=== PATIENT | female | born 1930 | race Caucasian/White ===

== ENCOUNTER → 2016-06-05 | Outpatient (CLI) | payer OTHER | LOC: BMCIMAGING 14:26 | PROVIDERS: ATTEND Internal Medicine | DX: M25.512 Pain in left shoulder (principal) ==

== ENCOUNTER → 2016-08-13 | Outpatient (CLI) | payer OTHER | LOC: FIMAGING 09:58 | PROVIDERS: ATTEND Internal Medicine | DX: M51.36 Other intervertebral disc degeneration, lumbar region (principal); M51.37 Other intervertebral disc degeneration, lumbosacral region; M43.16 Spondylolisthesis, lumbar region; M48.06 Spinal stenosis, lumbar region; M99.73 Connective tissue and disc stenosis of intervertebral foramina of lumbar region; M12.88 Other specific arthropathies, not elsewhere classified, other specified site ==

== ENCOUNTER → 2016-10-15 | Outpatient (CLI) | payer OTHER | LOC: FIMAGING 10:13 | PROVIDERS: ATTEND Internal Medicine | DX: Z12.31 Encounter for screening mammogram for malignant neoplasm of breast (principal) | CPT/HCPCS: G0202 ==

== ENCOUNTER → 2017-04-23 | Outpatient (CLI) | payer OTHER | LOC: BHFA 11:30 | PROVIDERS: ATTEND Internal Medicine Cardiovascular Disease | DX: I48.91 Unspecified atrial fibrillation (principal) ==

== ENCOUNTER 2018-04-22 18:17 | Inpatient (IN) | payer OTHER ==
--- NOTE | 2018-04-22 18:30 | EDPHY ---
H & P Time Seen by Provider: 04/22/18 18:28 HPI/ROS: CHIEF COMPLAINT: Weakness for a week HISTORY OF PRESENT ILLNESS: Patient has a history of atrial fibrillation on Eliquis and digoxin. She presents with a week of increasing weakness and inability today to walk. Decreased oral intake associated for the last 2 days. She had some diarrhea as well. Denies abdominal pain or vomiting, denies chest pain cough or shortness of breath, denies fever chills or urinary symptoms. She has some chronic lower extremity wounds and swelling. REVIEW OF SYSTEMS: Eye: no change in vision ENT: no sore throat Cardiac: no chest pain or syncope Pulmonary: HPI Abdomen: no vomiting, diarrhea, abdominal pain Musculoskeletal: Chronic lower extremity swelling Skin: no rash Neuro: no headache Constitutional: no fever : no urinary symptoms A comprehensive 10 point review of systems is otherwise negative aside from elements mentioned in the history of present illness. PAST MEDICAL HISTORY: Includes atrial fibrillation on Eliquis digoxin Social history: Here with and daughter General Appearance: Alert and conversant, cooperative. Eyes: No scleral icterus. ENT, Mouth: Dry mucous membranes. Respiratory: Normal respiratory effort, decreased breath sounds at the right base. Cardiovascular: Distant heart sounds. Gastrointestinal: Abdomen is soft and non tender. Neurological: Alert, face symmetric, normal motor and sensory in extremities. Skin: Multiple superficial skin tears in wounds with dressings intact. Musculoskeletal: Bilateral peripheral edema in the right leg is slightly redder than the left. Does not have crepitus or fluctuance. Psychiatric: Not agitated. Emergency Department course/MDM: Daughter tells me patient was sent here for admission by her primary care provider. Call is placed to Dr. Linnette porter. 1839: Linnette, will admit. Plan for treating initially with antibiotics for clinical appearance of possible right leg cellulitis. I think that DVT would be unlikely on Eliquis, clinically unlikely to be fasciitis or compartment syndrome or fracture. Results discussed at 7:15 p.m. With patient daughter and . Patient has received Ancef and cephalosporins before without problem, will give Ancef IV. IV fluids for acute kidney injury with creatinine 3.1. 2046: Chest x-ray reviewed, has large right pleural effusion. Discussed with Reji at 2021 will followup. Smoking Status: Former smoker Constitutional: Initial Vital Signs Temperature (C) 36.3 C 04/22/18 18:19 Heart Rate 62 04/22/18 18:19 Respiratory Rate 16 04/22/18 18:19 Blood Pressure 139/86 H 04/22/18 18:19 O2 Sat (%) 94 04/22/18 18:19 O2 Delivery Mode Nasal Cannula O2 (L/minute) 2 Allergies/Adverse Reactions: clindamycin [Clindamycin] Allergy (Severe, Verified 04/22/18 18:25) BRIGHT RED RASH HEAD TO TOE, ITCHING shellfish derived [Shellfish Derived] Allergy (Severe, Verified 04/22/18 18:25) NAUSEA / VOMITING Tetanus Toxoid,Fl *RETIRED-12/03/11 [Tetanus Toxoid,Fluid] Allergy (Severe, Verified 04/22/18 18:25) ARM EDEMA AT SITE Penicillins Allergy (Intermediate, Verified 04/22/18 18:25) Rash Sulfa (Sulfonamide Antibiotics) Allergy (Verified 04/22/18 18:25) Home Medications: Medication Instructions Recorded Apixaban [Eliquis] 2.5 mg PO BID 04/22/18 Cmpd Testosterone Crm 1 cordelia TP HS 04/22/18 Digoxin [Lanoxin 125 mcg (RX)] 125 mcg PO DAILY10 04/22/18 Furosemide [Lasix 20 MG (*)] 40 mg PO DAILY 04/22/18 Nebivolol HCl [Bystolic] 2.5 mg PO DAILY 04/22/18 Spironolactone [Aldactone 50 MG 50 mg PO DAILY 04/22/18 (RX)] Umeclidinium Brm/Vilanterol Tr 1 inh IH DAILY 04/22/18 [Anoro Ellipta 62.5-25 Mcg INH] Vitamin D 5000units 5,000 units PO DAILY 04/22/18 predniSONE 5 mg PO Q2D 04/22/18 Medical Decision Making - Diagnostics EKG Interpretation: 12-lead EKG interpreted by me; official reading is in computer system. My interpretation is atrial fibrillation rate 50 with late anterior RS transition. Imaging Results: Imaging Impressions Chest X-Ray 04/22/18 18:28 Impression: 1. Bilateral pleural effusions moderate to large on the right and mild-to- moderate on the left with adjacent compressive atelectatic changes. 2. Prominence of pulmonary vasculature centrally and dependent edema. Consider fluid overload/CHF. Imaging: I viewed and interpreted images myself Differential Diagnosis: Differential diagnosis considered for weakness including but not limited to infection electrolyte abnormality, depression, anxiety, CVA, spinal cord abnormality - Data Points Laboratory Results: Laboratory Results 04/22/18 18:32 04/22/18 18:32 04/22/18 04/22/18 04/22/18 18:32 18:32 18:30 WBC 11.05 10^3/uL H 10^3/uL (3.80-9.50) RBC 4.53 10^6/uL 10^6/uL (4.18-5.33) Hgb 13.2 g/dL g/dL (12.6-16.3) Hct 41.2 % % (38.0-47.0) MCV 90.9 fL fL (81.5-99.8) MCH 29.1 pg pg (27.9-34.1) MCHC 32.0 g/dL L g/dL (32.4-36.7) RDW 14.7 % % (11.5-15.2) Plt Count 625 10^3/uL H 10^3/uL (150-400) MPV 9.6 fL fL (8.7-11.7) Neut % (Auto) 68.0 % % (39.3-74.2) Lymph % (Auto) 20.2 % % (15.0-45.0) [place] % (Auto) 9.8 % % (4.5-13.0) Eos % (Auto) 1.2 % % (0.6-7.6) Baso % (Auto) 0.4 % % (0.3-1.7) Nucleat RBC Rel Count 0.0 % % (0.0-0.2) Absolute Neuts (auto) 7.53 10^3/uL H 10^3/uL (1.70-6.50) Absolute Lymphs (auto) 2.23 10^3/uL 10^3/uL (1.00-3.00) Absolute Monos (auto) 1.08 10^3/uL H 10^3/uL (0.30-0.80) Absolute Eos (auto) 0.13 10^3/uL 10^3/uL (0.03-0.40) Absolute Basos (auto) 0.04 10^3/uL 10^3/uL (0.02-0.10) Absolute Nucleated RBC 0.00 10^3/uL 10^3/uL (0-0.01) Immature Gran % 0.4 % % (0.0-1.1) Immature Gran # 0.04 10^3/uL 10^3/uL (0.00-0.10) Sodium 133 mEq/L L mEq/L (135-145) Potassium 4.4 mEq/L mEq/L (3.5-5.2) Chloride 107 mEq/L mEq/L (97-110) Carbon Dioxide 22 mEq/l mEq/l (22-31) Anion Gap 4 mEq/L L mEq/L (6-14) BUN 50 mg/dL H mg/dL (7-23) Creatinine 3.1 mg/dL H mg/dL (0.6-1.0) Estimated GFR 14 Glucose 96 mg/dL mg/dL (70-100) Calcium 7.8 mg/dL L mg/dL (8.5-10.4) Lactate Dehydrogenase 706 IU/L H IU/L (313-618) Digoxin 1.2 ng/mL ng/mL (0.8-2.0) Medications Given: Discontinued Medications Sodium Chloride (Ns) 1,000 mls @ 0 mls/hr IV EDNOW ONE; Wide Open PRN Reason: Protocol Stop: 04/22/18 19:13 Last Admin: 04/22/18 19:26 Dose: 1,000 mls Sodium Chloride (Ns) 1,000 mls @ 0 mls/hr IV EDNOW ONE; Wide Open PRN Reason: Protocol Stop: 04/22/18 19:13 Last Admin: 04/22/18 19:28 Dose: 1,000 mls Cefazolin Sodium/Dextrose (Ancef 1 Gm (Premix)) 50 mls @ 200 mls/hr IV EDNOW ONE PRN Reason: Protocol Stop: 04/22/18 19:29 Last Admin: 04/22/18 19:55 Dose: 50 mls Departure - Departure Disposition: [facility] Inpatient Acute Clinical Impression: Weakness, Acute kidney injury, Cellulitis of right leg Condition: Good
[2018-04-22 18:42] LABS: PLATELET COUNT 625 10^3/uL (150-400)
[2018-04-22] MEDS ORDERED: NS 1,000 ML IV ONE ×2 (19:12)
--- NOTE | 2018-04-22 19:32 | CPEKG ---
Test Reason : OPEN Blood Pressure : / mmHG Vent. Rate : 049 BPM Atrial Rate : 058 BPM P-R Int : 046 ms QRS Dur : 088 ms QT Int : 427 ms P-R-T Axes : 000 095 -80 degrees QTc Int : 386 ms Atrial fibrillation Probable anterior infarct, age indeterminate Confirmed by Dav Melton ([id number]) on 04/22/2018 7:32:19 PM Referred By: Celestino Anglin Confirmed By:Dav Melton
[2018-04-22] MEDS: APIXABAN 2.5 MG TAB PO SCH (22:40)
--- NOTE | 2018-04-22 22:47 | GHP ---
[f rep st] HISTORY AND PHYSICAL DATE OF ADMISSION: 04/22/2018 REASON FOR ADMISSION: Weakness, edema, leg weeping. HISTORY: This patient is an 88-year-old female who has a history of pleural effusion, heart failure, interstitial lung disease, COPD, who presents with increased swelling, leg weeping, and diffuse weakness. She was doing very well about 2 months ago; however, she has had increased edema in her legs and is feeling increasingly weak. She called the office today and said that she was too weak to come into the office, presented to the emergency room for evaluation. In the emergency room, she was found to have a red right leg with swelling and some weeping. Was also found to have a large right pleural effusion on chest x-ray and pyuria on urinalysis. She also has a mildly elevated white blood cell count. She was also found to have a significant increase in her creatinine compared to her most recent blood work and is being admitted for further evaluation. PAST MEDICAL HISTORY: Significant for hypertension, factor V Leiden mutation heterozygous, hypertension, edema, atherosclerotic heart disease with an elevated coronary calcium score, status post hip replacement. ALLERGIES: She is allergic to penicillin, clindamycin, scallops, and sulfamethoxazole. CURRENT MEDICATIONS: Amitriptyline 10 mg h.s., Bystolic 2.5 mg daily, digoxin 0.125 mg daily, ipratropium 0.6% solution spray in each nostril as needed, Anoro Ellipta 1 puff twice daily, aged garlic extract 4 daily, aspirin 81 mg daily, vitamin D 5000 international units daily, fish oil 1 capsule daily, prednisone 5 mg b.i.d., testosterone topical cream 1 clip each morning, Eliquis 2.5 mg twice daily, spironolactone 50 mg daily. REVIEW OF SYSTEMS: She is quite weak, has had no appetite, is eating poorly. PHYSICAL EXAM: VITAL SIGNS: Blood pressure 139/86. Pulse is 62 and irregularly irregular. Oxygen saturations 94% on 2 L. GENERAL: She is alert, oriented, appropriate. HEENT: Pupils are equal and reactive to light. Throat was normal. LUNGS: Revealed diminished breath sounds, especially on the right side. HEART: Has an irregularly irregular rhythm without significant murmur. ABDOMEN: Nontender. She has brawny edema bilaterally, with the right lower extremity being red compared to the left. She has an ulcer on both lower extremities. Pulses are not palpable in the feet. Blood work was significant, in that her BUN is 50, creatinine is 3.1. White count is 11,500, hemoglobin 13.2 with a left shift. Urinalysis reveals 3+ protein, 1+ blood, 25-50 white blood cells per high-powered field, 1+ glucose. Chest x-ray reveals a large right pleural effusion. IMPRESSION: Pleural effusion, possible urinary tract infection, possible cellulitis, profound weakness, increased BUN and creatinine. PLAN: We will obtain an echo of the heart. We will place on antibiotics. We will obtain a urine culture. We will do a therapeutic thoracentesis. We will get a renal ultrasound to further evaluate possible etiologies of increased creatinine. /[id number]/MODL MTDD
[2018-04-22] MEDS: D5W 1/2 NS 1,000 ML IV SCH (22:59)
[2018-04-23] MEDS: TESTOSTERONE TP SCH ×2 (01:02→21:40)
[2018-04-23 05:38] LABS: PLATELET COUNT 491 10^3/uL (150-400)
[2018-04-23] MEDS: D5W 1/2 NS 1,000 ML IV SCH (07:25)
--- NOTE | 2018-04-23 08:18 | SOAPPROG ---
SOAP Progress Note Assessment/Plan: Assessment: 88 yo female admitted through the ED for bilateral pleural effusions (R>L), CHF, acute renal failure, RLE cellulitis, and pyuria. She has a h/o atrial fibrillation on chronic anticoagulation, coronary artery disease, hypertension, factor V leiden mutation heterozygous, and is s/p hip replacement. Plan: Cellulitis, RLE - cefazolin, WBC improved Congestive Heart Failure, acute exacerbation - echocardiogram today Acute renal failure - renal ultrasound pending for further evaluation of cause of worsening renal function, holding diuretics for now, soft hydration Pleural Effusion - therapeutic thoracentesis today, titrate O2 to maintain sats >90% Pyura - urine culture pending 04/23/18 08:30 Subjective: Antonietta is resting in bed this morning. Says she slept pretty well, doesn't feel short of breath. Isn't coughing much up. Denies pain. Objective: Vital Signs Temp Pulse Resp BP Pulse Ox 36.6 C 78 18 137/78 H 94 04/23/18 03:10 04/23/18 03:10 04/23/18 03:10 04/23/18 03:10 04/23/18 03:10 Laboratory Results 04/23/18 05:12 04/23/18 05:12 04/22/18 04/23/18 04/24/18 05:59 05:59 05:59 Intake Total 2965 Balance 2965 Gen- alert, oriented, vitals stable Head- normocephalic, atraumatic CV- irregularly irregular rate and rhythm, rate controlled Resp- decreased to the right lower lobe, no wheezing, rhonchi, rales Abd- SNT, nondistended Extremities- RLE with decreased edema, still erythematous, non-weeping. Healing wound to R anterior dobson without drainage, not open at this time ICD10 Worksheet Patient Problems: Problems Problem Status Onset Acute kidney injury Acute Cellulitis of right leg Acute Weakness Acute
[2018-04-23] MEDS: CHOLECALCIFEROL VIT D3 2,000 UNITS TAB/CAP PO SCH (08:55)
[2018-04-23] MEDS: NEBIVOLOL HCL 5 MG TAB PO SCH ×2 (08:56→10:05)
[2018-04-23] MEDS: ceFAZolin 0.5 GM in D5W 50 ML IV SCH ×2 (08:56→21:37)
[2018-04-23] MEDS: APIXABAN 2.5 MG TAB PO SCH ×2 (09:00→21:37)
[2018-04-23 09:37] LABS: INR 1.02 (0.83-1.16); PROTIME(PATIENT) 13.6 SEC (12.0-15.0)
[2018-04-23] MEDS: Umeclidinium Brm/Vilanterol Tr [Anoro Ellipta 62.5-25 Mcg Inh] IH SCH (10:06)
--- NOTE | 2018-04-23 10:59 | PDMN ---
Medical Necessity Medical necessity: Pt meets IP criteria as of 04/22/2018 per and MCG M-540 ( pleural effusion) and M-70 (cellulitis); est los > 2 mn for ongoing tx and management of bilateral large pleural effusions requiring thoracentesis as well as cellulitis in the setting of acute CHF exacerbation, acute renal failure and tx of probable UTI with pyuria; requiring IV ABX, further workup, and serial labs.
--- NOTE | 2018-04-23 12:42 | ECHO ---
[email or web address] [address] [address] Main: [phone] Fax: Transthoracic Echocardiogram Name: ERICK ROY MR#: [id number] Study Date: 04/23/2018 Study Time: 09:28 AM Date of : 1930 Age: 88 year(s) Height: 175.3 cm (69 in.) Weight: 58.97 kg (130 lb.) BSA: 1.72 m2 Gender: Female Examination: Echo Indication: SOB/pleural effusion, COPD Image Quality: Good Contrast: Requested by: Celestino Anglin BP: 114 mmHg/66 mmHg Heart Rate: Rhythm: Indication: SOB/pleural effusion, COPD Procedure Staff Sprinkler Fitter Helper: Maria Eugenia Jimenez [facility] Reading Physician: Chapis Sosa MD Requesting Provider: Conclusions: Normal size left ventricle. No LV hypertrophy. Normal global systolic LV function. The ejection fraction is estimated to be 70-75 %. No regional wall motion abnormality. Normal size right ventricle. Normal RV function. The left atrium is mildly dilated. Mild mitral valve regurgitation is present. No aortic valve stenosis is present. Moderate tricuspid regurgitation is present. The pulmonary artery pressure is severely increased. RVSP is 78mmHG.. Left side pleural effusion. There is no previous echocardiogram for comparison. Measurements: Chambers Valvular Assessment AV/MV Valvular Assessment TV/PV Normal Normal Normal Name Value Range Name Value Range Name Value Range Ao Alexandra (MM): 3.0 cm (2.2 cm-3.7 AV Vmax: 1.45 m/s (1 m/s-1.7 TR Vmax: 4.11 mm/s ( - ) cm) m/s) TR PGmax: 68 mmHg ( - ) IVSd (2D): 0.9 cm (0.6 cm-1.1 AV meanP mmHg ( - ) syst. PAP: 78 mmHg ( - ) cm) MV E Vmax: 1.05 m/s ( - ) LVDd (2D): 3.8 cm (3.9 cm-5.3 MV A Vmax: 0.38 m/s ( - ) cm) MV E/A: 2.76 ( - ) LVDs (2D): 2.4 cm (2.1 cm-4 cm) LVPWd (2D): 1.0 cm ( - ) LVOTd 1.9 cm 1.9 cm mm Patient: ERICK ROY Study Date: 04/23/2018 Page 1 of 2 09:28 AM LVEF (BP): 71 % (>=55 %) EF Range: 70-75 % Continued Measurements: Chambers Valvular Assessment AV/MV Valvular Assessment TV/PV Name Value Name Value Name Value LADs: 3.8 cm MV E' Septal: 0.08 m/s CVP (est.): 10 mmHg LADs Lon.2 cm MV E/E' Septal: 13.80 LA Area: 21.2 cm2 MV E/E' Lateral: 12.50 LA Volume: 59 ml LA Volume Index: 34.3 ml/m2 Additional Vessels Name Value Ao Ascendin.9 cm Findings: Left Ventricle: Normal size left ventricle. No LV hypertrophy. Normal global systolic LV function. The ejection fraction is estimated to be 70-75 %. No regional wall motion abnormality. Unable to assess diastolic dysfunction.. Right Ventricle: Normal size right ventricle. Normal RV function. There is a moderator band noted in the right ventricle. Left Atrium: The left atrium is mildly dilated. Right Atrium: The right atrium is normal in size. Mitral Valve: Moderate mitral annular calcification. Mild mitral valve regurgitation is present. Aortic Valve: Moderate aortic cusp calcification is present. Trivial aortic valve regurgitation. No aortic valve stenosis is present. Tricuspid Valve: The tricuspid valve is normal in appearance and function. Moderate tricuspid regurgitation is present. The pulmonary artery pressure is severely increased. RVSP is 78mmHG.. Pulmonic Valve: The pulmonic valve is normal in appearance and function. Aorta: The aorta is normal. Pericardium: No pericardial effusion. Left side pleural effusion. (No Signature Object) Patient: ERICK ROY Study Date: 04/23/2018 Page 2 of 2 09:28 AM [id number]
--- NOTE | 2018-04-23 16:47 | ASMTCASEMG ---
Living Arrangements What is your living Answers: With Spouse arrangement? Who do you live with? Type Of Residence What kind of residence do Answers: House you live in? Discharge Plan Comments Coordination Status Comments Notes: Patient is an 88yo female who has a hx of pleural effusion, heart failure, COPD, presenting with increased swelling, leg weeping and diffuse weakness. Patient is being admitted for pleural effusion, possible UTI, cellulitis, profound weakness, increased BUN and creatinine. No therapies ordered at this time. Patient lives with her in [place]. Patient's PCP is Dr. Anglin. Patient states she has advanced directives but there are none in her medical chart. D/C plan TBD. CM will follow. Date Signed: 04/23/2018 04:47 PM Electronically Signed By:Apple Lazaro LCSW
[2018-04-24 05:44] LABS: PLATELET COUNT 504 10^3/uL (150-400)
--- NOTE | 2018-04-24 09:01 | SOAPPROG ---
SOAP Progress Note Assessment/Plan: Assessment: Plan: 04/24/18 09:00 pleural effusion--thoracentesis today a fib--rate controlled pulm htn--sildenafil started CHAITANYA--gradual improvement cellulitis--improving Subjective: Doing ok. Breathing stable. Questions about thoracentesis, kidneys and when she can go home. Legs have reduced in swelling nicely. No pain Objective: Vital Signs Temp Pulse Resp BP Pulse Ox 36.4 C 72 18 123/67 H 93 04/24/18 07:49 04/24/18 07:49 04/24/18 07:49 04/24/18 07:49 04/24/18 07:49 Laboratory Results 04/24/18 05:27 04/24/18 05:27 04/23/18 04/24/18 04/25/18 05:59 05:59 05:59 Intake Total 2965 250 Balance 2965 250 PT 13.6 SEC (12.0-15.0) 04/23/18 09:21 INR 1.02 (0.83-1.16) 04/23/18 09:21 Gen: NAD HEENT: wearing nasal canula, cheeks puffy Lungs: diminished BS Heart: irreg irreg LE's trace edema cr 2.8 wBC and neutrophils improved ICD10 Worksheet Patient Problems: Problems Problem Status Onset Acute kidney injury Acute Cellulitis of right leg Acute Weakness Acute
--- NOTE | 2018-04-24 09:06 | CPEKG ---
Test Reason : OPEN Blood Pressure : / mmHG Vent. Rate : 060 BPM Atrial Rate : 118 BPM P-R Int : 065 ms QRS Dur : 082 ms QT Int : 441 ms P-R-T Axes : 000 075 257 degrees QTc Int : 441 ms Atrial fibrillation Probable anterolateral infarct, age indeterm Partial missing lead(s): V1 Confirmed by Jack Martin ([id number]) on 04/24/2018 9:05:30 AM Referred By: Celestino Anglin Confirmed By:Jack Martin
[2018-04-24] MEDS ORDERED: LIDOCAINE 1% 300 MG/30 ML SDV ONE (09:09)
[2018-04-24] MEDS: ceFAZolin 0.5 GM in D5W 50 ML IV SCH ×2 (09:34→21:08)
[2018-04-24] MEDS: NEBIVOLOL HCL 5 MG TAB PO SCH (09:44)
[2018-04-24] MEDS: predniSONE 5 MG TAB PO SCH (09:45)
[2018-04-24] MEDS: CHOLECALCIFEROL VIT D3 2,000 UNITS TAB/CAP PO SCH (09:46)
[2018-04-24] MEDS: APIXABAN 2.5 MG TAB PO SCH ×3 (09:47→21:08)
[2018-04-24] MEDS: Umeclidinium Brm/Vilanterol Tr [Anoro Ellipta 62.5-25 Mcg Inh] IH SCH (09:47)
[2018-04-24] MEDS: SILDENAFIL CITRATE 20 MG TAB PO SCH ×4 (12:09→18:18)
[2018-04-24] MEDS: TESTOSTERONE TP SCH (21:08)
[2018-04-24] MEDS ORDERED: methylPREDNISolone SOD SUCC 40 MG/ML VIAL IVP ONE (21:45)
[2018-04-24] MEDS ORDERED: D5W NS W/ 20 KCl/L 1,000 ML IV SCH (21:45)
[2018-04-25] MEDS: ceFAZolin 0.5 GM in D5W 50 ML IV SCH ×2 (08:01→19:44)
[2018-04-25] MEDS: predniSONE 5 MG TAB PO SCH (08:07)
[2018-04-25] MEDS: SILDENAFIL CITRATE 20 MG TAB PO SCH ×3 (08:08→18:08)
[2018-04-25] MEDS: NEBIVOLOL HCL 5 MG TAB PO SCH (08:08)
[2018-04-25] MEDS: CHOLECALCIFEROL VIT D3 2,000 UNITS TAB/CAP PO SCH (08:09)
[2018-04-25] MEDS: APIXABAN 2.5 MG TAB PO SCH ×2 (08:10→19:42)
--- NOTE | 2018-04-25 08:19 | SOAPPROG ---
SOAP Progress Note Assessment/Plan: Assessment: 88 yo female admitted through the ED for bilateral pleural effusions (R>L), CHF, acute renal failure, RLE cellulitis, and pyuria. She has a h/o atrial fibrillation on chronic anticoagulation, coronary artery disease, hypertension, factor V leiden mutation heterozygous, and is s/p hip replacement. Plan: Cellulitis, RLE - cefazolin, continuing to improve Congestive Heart Failure, acute exacerbation - echocardiogram demonstrated ef 70 -75%, mild mitral regurg, moderate tricuspid regurg, will restart furosemide today Acute renal failure - slowly improving, recheck labs in the morning after starting diuretic Pleural Effusion - s/p thoracentesis yesterday with 1500cc removed, remaining mild bilat pleural effusions on cxr but markedly improved Pyura - urine culture pending- prelim gram neg siddhartha lactose hob grinder with low colony count, will give one dose of cipro today for additional coverage Afib- rate controlled, eliquis Pulm Htn- sildenafil started yesterday Dispo- likely home Saturday if stable and continuing to improve 04/25/18 08:45 Subjective: Antonietta is sitting up in the chair this morning, feeling well. Says breathing is better and she has more energy. Appetite is okay. Objective: Vital Signs Temp Pulse Resp BP Pulse Ox 36.3 C 67 19 120/61 94 04/25/18 07:34 04/25/18 07:34 04/25/18 07:34 04/25/18 07:34 04/25/18 07:34 Microbiology 04/24/18 10:30 Mycobacterial Smear (MEME) - Final Thoracic Fluid - Aspirate 04/24/18 10:30 Gram Stain - Final Thoracic Fluid - Aspirate Body Fluid Culture - Final Laboratory Results 04/24/18 05:27 04/24/18 05:27 04/24/18 04/25/18 04/26/18 05:59 05:59 05:59 Intake Total 250 Output Total 1510 Balance 250 -1510 PT 13.6 SEC (12.0-15.0) 04/23/18 09:21 INR 1.02 (0.83-1.16) 04/23/18 09:21 Gen- alert, oriented, vitals stable Head- normocephalic, atraumatic Resp- improved breath sounds, no wheezing, rhonchi, rales CV- S1S2, RRR, no murmurs, rubs, gallops Abd- SNT, non distended, + BS Extremities- RLE with mild erythema which is not bright red/angry appearing, no weeping, swelling is down ICD10 Worksheet Patient Problems: Problems Problem Status Onset Weakness Acute Acute kidney injury Acute Cellulitis of right leg Acute
[2018-04-25] MEDS ORDERED: CIPROFLOXACIN 200 MG/DEXTROSE 100 ML IV ONE (08:37)
[2018-04-25] MEDS: Umeclidinium Brm/Vilanterol Tr [Anoro Ellipta 62.5-25 Mcg Inh] IH SCH (08:52)
[2018-04-25] MEDS: FUROSEMIDE 20 MG/2 ML VIAL IVP SCH (09:13)
--- NOTE | 2018-04-25 15:08 | ASMTCMCOM ---
CM Note CM Note Notes: Patient is feeling better and improving clinically. Per RN today, no need for PT/OT. Given this, I anticipate she will d/c home independently, but we can check w her closer to discharge to see if home health RN would be beneficial. Case Management available for any other anticipated needs. Date Signed: 04/25/2018 03:07 PM Electronically Signed By:Mira Burnham RN
[2018-04-25] MEDS: TESTOSTERONE TP SCH (19:45)
[2018-04-25] MEDS: ACETAMINOPHEN 325 MG TAB PO PRN (23:39)
[2018-04-26 05:39] LABS: PLATELET COUNT 515 10^3/uL (150-400)
[2018-04-26] MEDS: ceFAZolin 0.5 GM in D5W 50 ML IV SCH ×2 (08:49→20:44)
[2018-04-26] MEDS: FUROSEMIDE 20 MG/2 ML VIAL IVP SCH (08:53)
[2018-04-26] MEDS: NEBIVOLOL HCL 5 MG TAB PO SCH (08:54)
[2018-04-26] MEDS: CHOLECALCIFEROL VIT D3 2,000 UNITS TAB/CAP PO SCH (08:54)
[2018-04-26] MEDS: APIXABAN 2.5 MG TAB PO SCH ×2 (08:55→20:45)
[2018-04-26] MEDS: SILDENAFIL CITRATE 20 MG TAB PO SCH ×3 (08:55→17:50)
[2018-04-26] MEDS: Umeclidinium Brm/Vilanterol Tr [Anoro Ellipta 62.5-25 Mcg Inh] IH SCH (09:50)
--- NOTE | 2018-04-26 12:22 | SOAPPROG ---
SOAP Progress Note Assessment/Plan: Assessment: Plan: 04/26/18 12:28 Cellulitis: RLE continues with mild erythema, edema. No drainage. Remains on cefazolin. WBC mildly up today. CHF: Back on low dose lasix and tolerating. Edema decreased per pt and family. Acute renal failure: creatinine without change today. Still 2.8. Will continue to monitor closely with resumption of diuretic. Pleural effusion: CXR with mild increase in size today of R sided effusion. Breathing remains comfortable. Labs pending on fluid following thoracentesis. Atrial fibrillation: rate controlled, on eliquis Pulmonary htn: dose held last night for low BP. Resumed this morning. Reviewed rationale and she is tolerating it this am. Urine cx: low colony count of E. coli. Sensitivities pending. On cefazolin. Received dose cipro yesterday. Elevated CA 125, CEA: discussed possible oncology consult with pt for second opinion, but she isn't especially interested. Discussed with Dr. Anglin as well, and he would like to check CT chest, abd, pelvis to see if we can either find a tumor, or understand her decline. She is open to this, but may not wish to pursue further treatment, depending on what is found. Weakness: will have PT, OT assess as she hasn't been up much, and has been weak. 04/26/18 12:30 04/26/18 12:47 Subjective: Feeling better these days. Has started to eat. Wound on LLE is draining clear fluid. Not moving much. CA 125 remains high. States she had surgery for presumed ovarian cancer 4 months ago, and nothing found. Was told by ob gyn oncology surgeon that result is likely a false positive. CEA also high. Objective: Vital Signs Temp Pulse Resp BP Pulse Ox 36.3 C 75 16 140/79 H 93 04/26/18 08:00 04/26/18 08:00 04/26/18 08:00 04/26/18 08:00 04/26/18 08:00 Microbiology 04/24/18 10:30 Gram Stain - Final Thoracic Fluid - Aspirate Body Fluid Culture - Final Laboratory Results 04/26/18 04:29 04/26/18 04:29 04/25/18 04/26/18 04/27/18 05:59 05:59 05:59 Intake Total 570 Output Total 1510 200 Balance -1510 370 PT 13.6 SEC (12.0-15.0) 04/23/18 09:21 INR 1.02 (0.83-1.16) 04/23/18 09:21 General: awake, alert, pleasant. Neck: no masses, adenopathy Lungs: decreased breath sounds in bases, o/w clear CV: irregular rhythm, rate controlled Abdomen: +bowel sounds, soft, NT Extremities: mild edema. RLE with mild erythema. LLE with dressing in place, clear drainage ICD10 Worksheet Patient Problems: Problems Problem Status Onset Acute kidney injury Acute Cellulitis of right leg Acute Weakness Acute
--- NOTE | 2018-04-26 17:25 | ASMTCMCOM ---
CM Note CM Note Notes: Spoke with pt and daughter in the room. Pt current with [facility] and would like to resume services with them. PT eval recommending home care also. Referral sent to [facility]. CM to follow. Discharge date TBD. D/C Plan: [facility] PT/OT Date Signed: 04/26/2018 05:25 PM Electronically Signed By:Esha Camarena
[2018-04-26] MEDS: TESTOSTERONE TP SCH (20:45)
[2018-04-26] MEDS: POLYETHYLENE GLYCOL 3350 17 GM PKT PO SCH (22:49)
[2018-04-27 05:31] LABS: PLATELET COUNT 468 10^3/uL (150-400)
[2018-04-27] MEDS: Umeclidinium Brm/Vilanterol Tr [Anoro Ellipta 62.5-25 Mcg Inh] IH SCH (09:17)
[2018-04-27] MEDS: ceFAZolin 0.5 GM in D5W 50 ML IV SCH (10:09)
[2018-04-27] MEDS: FUROSEMIDE 20 MG/2 ML VIAL IVP SCH (10:09)
[2018-04-27] MEDS: CHOLECALCIFEROL VIT D3 2,000 UNITS TAB/CAP PO SCH (10:10)
[2018-04-27] MEDS: APIXABAN 2.5 MG TAB PO SCH ×2 (10:14→20:46)
[2018-04-27] MEDS: SILDENAFIL CITRATE 20 MG TAB PO SCH ×4 (10:14→17:30)
[2018-04-27] MEDS: NEBIVOLOL HCL 5 MG TAB PO SCH (10:14)
[2018-04-27] MEDS: POLYETHYLENE GLYCOL 3350 17 GM PKT PO SCH (10:22)
--- NOTE | 2018-04-27 13:28 | SOAPPROG ---
SOAP Progress Note Assessment/Plan: Assessment: Plan: 04/26/18 12:28 Cellulitis: RLE continues with mild erythema, edema. No drainage. Remains on cefazolin. WBC mildly up today. CHF: Back on low dose lasix and tolerating. Edema decreased per pt and family. Acute renal failure: creatinine without change today. Still 2.8. Will continue to monitor closely with resumption of diuretic. Pleural effusion: CXR with mild increase in size today of R sided effusion. Breathing remains comfortable. Labs pending on fluid following thoracentesis. Atrial fibrillation: rate controlled, on eliquis Pulmonary htn: dose held last night for low BP. Resumed this morning. Reviewed rationale and she is tolerating it this am. Urine cx: low colony count of E. coli. Sensitivities pending. On cefazolin. Received dose cipro yesterday. Elevated CA 125, CEA: discussed possible oncology consult with pt for second opinion, but she isn't especially interested. Discussed with Dr. Anglin as well, and he would like to check CT chest, abd, pelvis to see if we can either find a tumor, or understand her decline. She is open to this, but may not wish to pursue further treatment, depending on what is found. Weakness: will have PT, OT assess as she hasn't been up much, and has been weak. 04/26/18 12:30 04/26/18 12:47 04/27/18 13:30 Cellulitis: WBC back down today, and plt count a little lower. Erythema a little better. She has been on IV cefazolin so will switch to PO antibiotics in anticipation of d/c. Will change to keflex as she is allergic to pcn, sulfa CHF: tolerating lasix. Minimal edema, ongoing weeping from her legs ARF: creatinine better today. Pleural effusion: large volume on R, per yesterday's CT Atrial fibrillation: on eliquis, rate stable Pulmonary hypertension: tolerating sildenafil. BPs doing well. Urine cx: sensitivity of E. coli not back. May or may not be sensitive to keflex , similar to cefazolin. Elevated CA 125, CEA: CT chest, abd/pelvis show some thickening of esophagogastric junction, a mass-like fullness in second portion of duodenum, mild ascites. She is not having difficulty with swallowing, and not interested in further work up. Weakness: seen by PT/OT with recommendation for home care. Dispo: hopefully home tomorrow. 04/27/18 13:42 04/27/18 13:58 04/27/18 14:00 04/27/18 14:08 04/27/18 14:10 04/27/18 14:12 04/27/18 14:15 04/27/18 14:18 Subjective: Resting in bed comfortably. No complaints. Slipped in the bathroom earlier today and has some skin tears on shoulders. No other injury. Objective: Vital Signs Temp Pulse Resp BP Pulse Ox 36.4 C 80 18 136/69 H 88 L 04/27/18 11:51 04/27/18 11:51 04/27/18 11:51 04/27/18 11:51 04/27/18 11:51 Microbiology 04/24/18 10:30 Gram Stain - Final Thoracic Fluid - Aspirate Body Fluid Culture - Final Laboratory Results 04/27/18 05:12 04/27/18 05:12 04/26/18 04/27/18 04/28/18 05:59 05:59 05:59 Intake Total 570 700 Output Total 200 200 Balance 370 700 -200 PT 13.6 SEC (12.0-15.0) 04/23/18 09:21 INR 1.02 (0.83-1.16) 04/23/18 09:21 General: resting, but arouses easily, NAD Neck: no masses, adenopathy Lungs: clear Cardiovascular: irregularly irregular Abdomen: bowels sounds present, soft, NT Extremities: RLE with mild erythema. LLE with shallow wounds, no inflammation. Both legs continue to weep. ICD10 Worksheet Patient Problems: Problems Problem Status Onset Weakness Acute Acute kidney injury Acute Cellulitis of right leg Acute
[2018-04-27] MEDS: TESTOSTERONE TP SCH (20:46)
[2018-04-27] MEDS: CEPHALEXIN 500 MG CAP PO SCH (20:46)
[2018-04-28] MEDS: ACETAMINOPHEN 325 MG TAB PO PRN ×3 (05:59→20:25)
--- NOTE | 2018-04-28 08:47 | SOAPPROG ---
SOAP Progress Note Assessment/Plan: Assessment: Plan: Subjective: Came by to find pt asleep. Will come back over lunch time to reassess. Objective: Vital Signs Temp Pulse Resp BP Pulse Ox 97.5 F 70 16 105/54 L 92 04/28/18 04:00 04/28/18 04:00 04/28/18 04:00 04/28/18 04:00 04/28/18 04:00 Microbiology 04/24/18 10:30 Gram Stain - Final Thoracic Fluid - Aspirate Body Fluid Culture - Final Laboratory Results 04/27/18 05:12 04/27/18 05:12 04/27/18 04/28/18 04/29/18 05:59 05:59 05:59 Intake Total 700 400 Output Total 650 Balance 700 -250 PT 13.6 SEC (12.0-15.0) 04/23/18 09:21 INR 1.02 (0.83-1.16) 04/23/18 09:21 ICD10 Worksheet Patient Problems: Problems Problem Status Onset Acute kidney injury Acute Cellulitis of right leg Acute Weakness Acute
[2018-04-28] MEDS: NEBIVOLOL HCL 5 MG TAB PO SCH (09:29)
[2018-04-28] MEDS: SILDENAFIL CITRATE 20 MG TAB PO SCH ×3 (09:30→17:58)
[2018-04-28] MEDS: APIXABAN 2.5 MG TAB PO SCH ×2 (09:30→20:26)
[2018-04-28] MEDS: predniSONE 5 MG TAB PO SCH (09:30)
[2018-04-28] MEDS: CEPHALEXIN 500 MG CAP PO SCH ×2 (09:30→20:26)
[2018-04-28] MEDS: CHOLECALCIFEROL VIT D3 2,000 UNITS TAB/CAP PO SCH (09:31)
[2018-04-28] MEDS: POLYETHYLENE GLYCOL 3350 17 GM PKT PO SCH (09:31)
[2018-04-28] MEDS: FUROSEMIDE 20 MG/2 ML VIAL IVP SCH (09:31)
[2018-04-28] MEDS: Umeclidinium Brm/Vilanterol Tr [Anoro Ellipta 62.5-25 Mcg Inh] IH SCH (09:58)
--- NOTE | 2018-04-28 13:53 | SOAPPROG ---
SOAP Progress Note Assessment/Plan: Assessment: edema, cellulitis improved, bladder infection. pleural effussioin and ascites, Pulmonary hypertension. A fib, Generally significantly imporoved. Plan:Home in AM if stable. 04/28/18 13:53 Subjective: Feeling better. APpetite is improved. Breathing is better. Urine output is good. Objective: Vital Signs Temp Pulse Resp BP Pulse Ox 98.3 F 71 15 115/55 L 94 04/28/18 12:00 04/28/18 12:00 04/28/18 12:00 04/28/18 12:00 04/28/18 12:00 Microbiology 04/24/18 10:30 Gram Stain - Final Thoracic Fluid - Aspirate Body Fluid Culture - Final 04/23/18 17:08 Urine Culture - Final Urine,Clean Catch Escherichia Coli Laboratory Results 04/27/18 05:12 04/27/18 05:12 04/27/18 04/28/18 04/29/18 05:59 05:59 05:59 Intake Total 700 400 Output Total 650 101 Balance 700 -250 -101 PT 13.6 SEC (12.0-15.0) 04/23/18 09:21 INR 1.02 (0.83-1.16) 04/23/18 09:21 Lungs sounds deminished in R base. No rales. COR Irregular rhythm ,controlled rate. legs look good. Still with 2+ edema, but improved. ICD10 Worksheet Patient Problems: Problems Problem Status Onset Acute kidney injury Acute Cellulitis of right leg Acute Weakness Acute
[2018-04-28] MEDS: SPIRONOLACTONE 25 MG TAB PO SCH (14:43)
[2018-04-28] MEDS: TESTOSTERONE TP SCH (20:40)
[2018-04-29] MEDS: ACETAMINOPHEN 325 MG TAB PO PRN ×2 (02:17→08:02)
[2018-04-29 05:15] LABS: PLATELET COUNT 485 10^3/uL (150-400)
[2018-04-29 07:31] VITALS: BP 140/65
[2018-04-29] MEDS: CHOLECALCIFEROL VIT D3 2,000 UNITS TAB/CAP PO SCH (08:02)
[2018-04-29] MEDS: SPIRONOLACTONE 25 MG TAB PO SCH (08:03)
[2018-04-29] MEDS: predniSONE 5 MG TAB PO SCH (08:03)
[2018-04-29] MEDS: SILDENAFIL CITRATE 20 MG TAB PO SCH (08:04)
[2018-04-29] MEDS: CEPHALEXIN 500 MG CAP PO SCH (08:04)
[2018-04-29] MEDS: NEBIVOLOL HCL 5 MG TAB PO SCH (08:04)
[2018-04-29] MEDS: APIXABAN 2.5 MG TAB PO SCH (08:05)
[2018-04-29] MEDS ORDERED: FUROSEMIDE 20 MG TAB PO SCH (09:00)
--- NOTE | 2018-04-29 09:10 | PDIAF ---
- Medication Management [employer] Antibiotics: Keflex 500 mg BID [employer] Antibiotic Stop Date: 05/04/18 Discharge Medications: electronically signed and located in the Home Medication List. - Orders Services needed: Registered Nurse, Physical Therapy, Occupational Therapy Diet Recommendation: no restrictions on diet - Follow Up Care Current Providers and Referrals: Patient,NotPresent [Unknown] - As per Instructions
[2018-04-29] MEDS: Umeclidinium Brm/Vilanterol Tr [Anoro Ellipta 62.5-25 Mcg Inh] IH SCH (10:07)
--- NOTE | 2018-06-03 07:10 | GDS ---
[f rep st] DISCHARGE SUMMARY ADMISSION DIAGNOSES: Urinary infection, cellulitis, right heart failure, pulmonary fibrosis, chronic obstructive pulmonary disease with exacerbation, edema. DISCHARGE DIAGNOSES: Urinary infection, cellulitis, right heart failure, pulmonary fibrosis, chronic obstructive pulmonary disease with exacerbation, edema. HOSPITAL COURSE: The patient was placed on IV antibiotics, IV diuretics, oxygen. She was noted to h ave a pleural effusion on chest x-ray. She underwent a thoracentesis during the hospitalization, and under ultrasound guidance, 1500 mL of clear yellow fluid was removed. Fluid cultures were negative. Urine culture was positive for Escherichia coli sensitive to the cephalosporin family, tetracycline s, aminoglycosides, quinolones, and extended spectrum penicillin. She slowly to gradually improved. Shortness of breath resolved, appetite returned, and she has been discharged to home. DISCHARGE MEDICATIONS: Spironolactone 50 mg daily, testosterone cream 1 application h.s., Eliquis 2. 5 mg b.i.d., vitamin D 5000 international units daily, Ellipta 1 inhalation daily, Bystolic 2.5 mg da raina, prednisone 5 mg every other day. She will follow up in the office in 3 or 4 days. /[id number]/MODL
== END 2018-04-29 10:42 | disposition home health service (06) | DRG 292 ==
LOC: EDUNIT# → F3E 22:05
PROVIDERS: ADMIT Internal Medicine; ATTEND Internal Medicine
PROC: 0W993ZZ Drainage of Right Pleural Cavity, Percutaneous Approach (ICD-10-PCS; principal; 2018-04-23)
DX: I50.811 Acute right heart failure (principal); J91.8 Pleural effusion in other conditions classified elsewhere; J44.1 Chronic obstructive pulmonary disease with (acute) exacerbation; I27.23 Pulmonary hypertension due to lung diseases and hypoxia; N17.9 Acute kidney failure, unspecified; L03.115 Cellulitis of right lower limb; N30.90 Cystitis, unspecified without hematuria; B96.20 Unspecified Escherichia coli [E. coli] as the cause of diseases classified elsewhere; R53.1 Weakness; S41.009A Unspecified open wound of unspecified shoulder, initial encounter; W01.0XXA Fall on same level from slipping, tripping and stumbling without subsequent striking against object, initial encounter; Y92.231 Patient bathroom in hospital as the place of occurrence of the external cause; Y99.8 Other external cause status; I48.91 Unspecified atrial fibrillation; Z79.01 Long term (current) use of anticoagulants; I25.10 Atherosclerotic heart disease of native coronary artery without angina pectoris; I10 Essential (primary) hypertension; D68.51 Activated protein C resistance; Z96.649 Presence of unspecified artificial hip joint; Z87.891 Personal history of nicotine dependence
CPT/HCPCS: 86304-90; 96374; 97116-GP; 97161-GP; 97165-GO; 97535-GO; J0690; J1940; J7512